=== PATIENT | male | born 1990 | race Hispanic/Latino ===

== ENCOUNTER 2018-05-04 10:59 | Emergency (ER) | payer BC ==
[2018-05-04] MEDS ORDERED: Ibuprofen 800 MG TAB ONE (11:43)
[2018-05-04] MEDS ORDERED: HYDROcodone/Acetaminophen 10/325 mg Tablet ONE (11:43)
--- NOTE | 2018-05-04 13:00 | RAD ---
RIGHT ANKLE 3 VIEWS: DATE: 05/04/2018. FINDINGS: No fracture, joint space narrowing, or other acute change was seen to explain ankle pain. The bones appear normal. Some soft tissue swelling is seen around the joint. IMPRESSION: No acute bony finding. POS: HOME
== END 2018-05-04 11:46 | disposition home or self-care (01) ==
LOC: BURERS 10:59
DX: M25.571 Pain in right ankle and joints of right foot (principal); I10 Essential (primary) hypertension; M10.9 Gout, unspecified

== ENCOUNTER 2020-04-08 14:56 | Outpatient (CLI) | payer OTHER ==
--- NOTE | 2020-04-08 16:39 | RAD ---
RIGHT FOREARM TWO VIEWS: 04/08/20 There is a fracture of the ulnar shaft at the junction of the middle and distal thirds. Displacement is only slight. The radius appears intact. IMPRESSION: Ulnar shaft fracture. POS: HOME
== END 2020-04-08 14:57 | disposition home or self-care (01) ==
LOC: BURRAD 14:56
PROVIDERS: ATTEND Physician Assistant
DX: M79.631 Pain in right forearm (principal); S52.201A Unspecified fracture of shaft of right ulna, initial encounter for closed fracture